=== PATIENT | female | born 1960 ===

== ENCOUNTER → 2018-10-01 | Outpatient (REF) ==
--- NOTE | 2018-10-01 16:15 | REP ---
PARTIAL LUMBAR SPINE, THREE VIEWS: HISTORY: Degenerative disc disease. COMPARISON: 01/23/2007. There is no acute fracture or subluxation. The lumbar intervertebral discs are decreased in height consistent with disc degeneration. Osteophytes are present on L1 through 3. IMPRESSION: Degenerative change as described above. Electronically Signed by Jesús Ulloa MD 10/01/2018 04:18 P
== END ==
LOC: M SMT 10:40
PROVIDERS: ATTEND Internal Medicine
DX: Z02.71 Encounter for disability determination (principal)

== ENCOUNTER → 2020-09-12 | Outpatient (REF) ==
--- NOTE | 2020-09-12 16:07 | REPPI ---
INDICATION: DISABILITY DETERMINATION. COMPARISON: 10/01/2018. TECHNIQUE: Three AP and lateral views lumbosacral spine. FINDINGS: There is no compression fracture. There is normal lumbar lordosis. There is mild diffuse spurring. There is mild disc space narrowing and subchondral sclerosis at L1-2, L2-3, and L5-S1, with a more moderate degree of narrowing at L4-5. There is sclerosis and spurring at the posterior facet joints of L4-5 and L5-S1. There is mild curvature toward the left. IMPRESSION: No compression fracture. Stable degenerative changes as above. <Electronically signed by Cas Heredia > 09/12/20 [id number]
== END ==
LOC: M PLAIMG 12:37
PROVIDERS: ATTEND Internal Medicine
DX: Z02.9 Encounter for administrative examinations, unspecified (principal)

== ENCOUNTER → 2021-08-16 | Outpatient (REF) | LOC: M PLAIMG 11:35 | PROVIDERS: ATTEND Internal Medicine | DX: Z00.00 Encounter for general adult medical examination without abnormal findings (principal) ==